=== PATIENT | female | born 2000 | race Caucasian/White ===

== ENCOUNTER 2019-12-11 11:16 | Emergency (ER) | payer OTHER ==
[~2019-12-11] VITALS: Ht 162.6 cm; Wt 118.2 kg
[2019-12-11 11:24] VITALS: TEMP 98.3
[2019-12-11] MEDS ORDERED: ZOFRAN 4MG T4 MG/TAB PO (11:47)
[2019-12-11] MEDS ORDERED: XANAX .25M0.25 MG/TA PO (11:47)
[2019-12-11 12:21] LABS: COLLECTION METHOD CLEAN CATCH
[2019-12-11 12:27] LABS: BASO % 0.4 % (0.0-2.0); EOS % 0.4 % (0-4.0); GRAN % 70.9 % (42.2-75.2); HEMATOCRIT 44.4 % (35.0-45.0); HEMOGLOBIN 14.6 g/dl (12.0-15.0); LYMPH # 1.3 (1.2-3.4); LYMPH % 22.7 % (20.0-51.0); MEAN CELL VOLUME 83 fl (80.0-95.0); MEAN CORPUSCULAR HEMOGLOBIN 27 pg (26.0-32.0); MEAN CORPUSCULAR HGB CONC 33 g/dl (33.0-37.0); MEAN PLATELET VOLUME 10.2 fl (7.4-10.4); MONO # 0.3 (0.1-0.6); MONO % 5.4 % (1.7-9.3); PLATELET COUNT 412 K/mm3 (130-400); RED BLOOD COUNT 5.36 M/mm3 (4.10-5.30); REDCELL DISTRIBUTION WIDTH-CV 13.8 % (11.5-14.5)
[2019-12-11 12:43] LABS: ALBUMIN 4.8 gm/dL (3.5-5.0); BILIRUBIN,TOTAL 0.8 mg/dL (0.0-1.0); C-REACTIVE PROTEIN 1.2 mg/dL (0.0-0.9); CREATININE, serum 0.65 (0.52-1.25); MUCOUS Present /lpf; PH 6 (5-8); POTASSIUM 3.5 mmol/L (3.4-5.0); SQUAMOUS EPITHELIAL 0-2 /hpf; TOTAL PROTEIN 8.8 gm/dL (6.4-8.2); URINE APPEARANCE Hazy; URINE BACTERIA Rare /hpf; URINE BILIRUBIN Negative (NEGATIVE); URINE BLOOD 2+ (NEGATIVE); URINE COLOR Yellow; URINE GLUCOSE Negative (NEGATIVE); URINE KETONE 1+ (NEGATIVE); URINE LEUKOCYTE ESTERASE Negative (NEGATIVE); URINE NITRATE Negative (NEGATIVE); URINE PROTEIN(semi-quant) Negative (NEGATIVE); URINE UROBILINOGEN Negative (NEGATIVE)
[2019-12-11] MEDS ORDERED: PHENERGAN 25 TA25 MG PO (16:47)
[2019-12-11 17:05] VITALS: BP 128/76; PULSE 78
== END 2019-12-11 17:05 | disposition home or self-care (01) ==
LOC: COL.ER 11:16
PROVIDERS: Nurse Practitioner Primary Care
DX: R10.13 Epigastric pain (principal); R11.2 Nausea with vomiting, unspecified; F12.90 Cannabis use, unspecified, uncomplicated; K59.00 Constipation, unspecified; R19.7 Diarrhea, unspecified; Z32.02 Encounter for pregnancy test, result negative
CPT/HCPCS: J1170; J2550; J7030

== ENCOUNTER 2020-01-09 06:47 | Day surgery (SDC) | payer OTHER ==
[~2020-01-09] VITALS: Ht 162.6 cm; Wt 115.6 kg
[~2020-01-09 06:47] MED LIST: PHENERGAN 25 TA25 MG PO; XANAX .25M0.25 MG/TA PO; ZOFRAN 4MG T4 MG/TAB PO
[2020-01-09 07:25] VITALS: BP 149/95; PULSE 101; TEMP 98.4
[2020-01-09] MEDS ORDERED: NEXPLANON (07:37)
--- NOTE | 2020-01-09 07:39 | NUR ---
TO RM AT 0655- CALL LIGHT IN REACH WILL CALL SELENA MENDEZ FOR RIDE HOME
[2020-01-09] MEDS ORDERED: PRILOSEC 20MG20 MG PO (08:53)
[2020-01-09 09:10] VITALS: BP 134/90; PULSE 83; TEMP 98.9
--- NOTE | 2020-01-09 09:10 | NUR ---
TO RM 3 PER CART FROM ENDOSCOPY. ALERT ORIENTED X3, TALKING WITH STAFF. AMBULATED TO RECLINER WITH ASSIST. C/O UPSET STOMACH BUT NOT NAUSEA.
[2020-01-09 09:25] VITALS: BP 128/86; PULSE 88
--- NOTE | 2020-01-09 09:25 | NUR ---
RECEIVED SPRITE AND CRACKERS.
[2020-01-09 09:40] VITALS: BP 130/93; PULSE 93
--- NOTE | 2020-01-09 09:40 | NUR ---
ATE ABOUT 1/2, TOLERATED WELL. TEXTING ON PHONE.
--- NOTE | 2020-01-09 09:57 | NUR ---
DR ONEILL INTO TALK WITH PATIENT. PATIENT CALLED BOYFRIEND FOR RIDE.
--- NOTE | 2020-01-09 10:15 | NUR ---
DISCHARGED PER WC BY NURSING STAFF TO PRIVATE CAR IN CARE OF BOYFRIEND VANESSABrayan
== END 2020-01-09 10:25 | disposition home or self-care (01) ==
LOC: SDCO 06:47
DX: R10.84 Generalized abdominal pain (principal); K64.0 First degree hemorrhoids; K21.0 Gastro-esophageal reflux disease with esophagitis; K29.30 Chronic superficial gastritis without bleeding; F41.9 Anxiety disorder, unspecified; F32.9 Major depressive disorder, single episode, unspecified; Z68.41 Body mass index [BMI] 40.0-44.9, adult; K59.00 Constipation, unspecified
CPT/HCPCS: J2405; J2704; J7030

== ENCOUNTER → 2020-01-29 | Outpatient (CLI) | payer OTHER ==
[~2020-01-29] MED LIST changes: +NEXPLANON; +PRILOSEC 20MG20 MG PO
== END ==
LOC: COL.RAD 07:52
DX: R11.2 Nausea with vomiting, unspecified (principal)
CPT/HCPCS: A9541

== ENCOUNTER → 2021-03-04 | Outpatient (CLI) | payer OTHER ==
[~2021-03-04] MED LIST changes: +PRIL40 PO; +TRADJENTA5 MG PO; +trajenta PO
== END ==
LOC: COL.RAD 02-12 09:00
DX: H47.10 Unspecified papilledema (principal)
CPT/HCPCS: A9585

== ENCOUNTER 2021-03-13 09:26 | Outpatient (CLI) | payer OTHER ==
[2021-03-13] VITALS (7 sets, daily range): BP systolic 120–142; BP diastolic 72–90; PULSE 81–106; TEMP 98.8
[~2021-03-13 09:26] MED LIST changes: -TRADJENTA5 MG PO
[2021-03-13] MEDS ORDERED: TRADJENTA5 MG PO (10:12)
--- NOTE | 2021-03-13 12:06 | NUR ---
Pt assisted out to boyfriend's car by wheelchair with belongings. No c/o headache. Has tolerated sips of water without issue. She expressed understanding of DC instructions reviewed prior to departing.
[2021-03-13 12:11] LABS: CSF APPEARANCE CLEAR; CSF COLOR COLORLESS; CSF MONONUCLEAR 0 % (70-100); CSF POLYMORPHONUCLEAR 0 % (0-6); CSF RBC 0 /mm3 (0-0)
[2021-03-13 12:18] LABS: GLUCOSE,CSF 70 mg/dL (40-70); TOTAL PROTEIN,CSF 30 mg/dL (15-45)
== END 2021-03-13 12:22 | disposition home or self-care (01) ==
LOC: COL.RAD 09:26
PROVIDERS: Optometrist
DX: H47.10 Unspecified papilledema (principal)

== ENCOUNTER 2021-03-14 13:07 | Emergency (ER) | payer OTHER ==
[~2021-03-14] VITALS: Ht 165.1 cm; Wt 118.2 kg
[~2021-03-14 13:07] MED LIST changes: +TRADJENTA5 MG PO
[2021-03-14 13:30] VITALS: TEMP 97.9
[2021-03-14 15:55] VITALS: BP 127/80; PULSE 81
== END 2021-03-14 15:55 | disposition home or self-care (01) ==
LOC: COL.ER 13:07
DX: G44.84 Primary exertional headache (principal); G97.1 Other reaction to spinal and lumbar puncture
CPT/HCPCS: J7120

== ENCOUNTER 2021-03-17 08:37 | Emergency (ER) | payer OTHER ==
[~2021-03-17] VITALS: Ht 165.1 cm; Wt 118.2 kg
[2021-03-17 08:47] VITALS: BP 157/107; TEMP 98.4
[2021-03-17 09:49] LABS: BASO % 0.4 % (0.0-2.0); EOS # 0.1 (0.0-0.7); EOS % 0.9 % (0-4.0); GRAN # 5.9 (1.4-6.5); GRAN % 76.5 % (42.2-75.2); HEMATOCRIT 42.3 % (37.0-47.0); HEMOGLOBIN 14.3 g/dl (12.5-16.0); LYMPH # 1.3 (1.2-3.4); LYMPH % 17.1 % (20.0-51.0); MEAN CELL VOLUME 82 fl (80.0-100.0); MEAN CORPUSCULAR HEMOGLOBIN 28 pg (27.0-31.0); MEAN CORPUSCULAR HGB CONC 34 g/dl (33.0-37.0); MONO # 0.4 (0.1-0.6); MONO % 4.8 % (1.7-9.3); PLATELET COUNT 316 K/mm3 (130-400); RED BLOOD COUNT 5.19 M/mm3 (4.10-5.30); REDCELL DISTRIBUTION WIDTH-CV 13.9 % (11.5-14.5)
[2021-03-17 10:19] LABS: ALBUMIN 4.1 gm/dL (3.5-5.0); BILIRUBIN,TOTAL 0.7 mg/dL (0.2-1.2); C-REACTIVE PROTEIN 0.5 mg/dL (0.00-0.50); CALCIUM 9.6 mg/dL (8.4-10.2); CREATININE, serum 0.76 mg/dL (0.57-1.11); POTASSIUM 3.6 mmol/L (3.5-4.5)
[2021-03-17 14:03] VITALS: PULSE 104
== END 2021-03-17 14:03 | disposition home or self-care (01) ==
LOC: COL.ER 08:37
PROVIDERS: Family Medicine
DX: G97.1 Other reaction to spinal and lumbar puncture (principal); G43.909 Migraine, unspecified, not intractable, without status migrainosus; E11.9 Type 2 diabetes mellitus without complications; Z79.84 Long term (current) use of oral hypoglycemic drugs
CPT/HCPCS: J0595; J0780; J1200; J2405; J7120